=== PATIENT | male | born 1945 | race Caucasian/White ===

== ENCOUNTER 2021-10-19 00:49 | Day surgery (SDC) | payer MEDICARE, SELFPAY ==
[2021-10-11 08:52] VITALS: BMI 26.6
--- NOTE | 2021-10-11 09:08 | PC.NURSE ---
Report to the Outpatient Waiting Room, entrance under the green pavilion located off [facility], at time _0600_ on date _10/19/21_. OR Time: _0730_. - You and your visitor will be asked a series of questions to screen for COVID 19 for your protection. - Only one visitor is allowed at this time. - The patient visitor is requested to leave or wait in car when not with patient. - A mask is required within the hospital. Patients may have clear liquids (water, carbonated beverages, clear teas, apple juice) until 3 hours prior to surgery (0430 AM) with a maximum of 20 ounces. - No food from midnight until time of surgery Take the following medications with a SIP of water the morning of surgery: __EYE DROPS__ Medications to discontinue per ANESTHESIA - VITAMIN C, KRILL OIL 3 DAYS PRIOR TO SURGERY, Date to take last dose CONTACT DR. COSTA OFFICE REGARDING IBUPROFEN, NAPROXEN AND FULL STRENGTH ASPIRIN_ Please no deodorant, or body powder the day of surgery. No jewelry (including any body piercings) or valuables the day of surgery, leave them at home. Please take a shower or bath the night before, or the morning of, surgery with an antibacterial soap. Wear comfortable, loose fitting clothing. - Jewelry must be removed prior to entering the operating room. Rings and piercings that are not removed may be cut off. - The hospital will not accept responsibility for valuables. - Please leave all valuables, including medications, at home the day of surgery. If you are going home after surgery, a licensed skidder driver must drive you home. - NO public transportation without another adult. - We recommend that an adult stay with you for 24 hours following discharge. - We also recommend that you do not drive, make important decision, drink alcoholic beverages, or take any drugs that were not prescribed by your health care provider for at least 24 hours after your discharge time. Follow any additional instructions given to you from your surgeon. HIBICLENS SHOWER AM OF SURGERY If you or anyone in your household have experienced Covid symptoms in the past week, please notify your surgeon or the nurse liaison at the phone number below for possible testing. Telephone instructions given to ____PT and asked if any additional questions and then verbalized understanding. Patient advised to call surgeon office or pre surgery nurse liaison [phone] if any additional questions.
--- NOTE | 2021-10-17 13:07 | PM.SD2 ---
Same Day Admit/Disch: HPI History of Present Illness Chief complaint: Rt Ing Hernia Narrative: Shorty Carrillo is a 75 year old male Who noticed a bulge in the right groin in the middle of July. This has been persistent. He was seen in the office by his primary care physician provider and then by me and in both instances was noted to have a reducible right inguinal hernia. After discussion, he is taken to surgery now for right inguinal hernia repair. [facility] Past Medical History Medical History Chronic low back pain without sciatica Environmental allergies Erectile dysfunction Glaucoma Hemorrhagic colitis 2007 Hyperlipidemia LDL goal <100 Unspecified osteoarthritis, unspecified site Surgical History Surgical History History of cataract extraction 04/2009 History of partial colectomy 2007 Family History Family History Other Family history of malignant neoplasm of breast in first degree relative Social History Social History Smoking status: Never smoker Second hand tobacco smoke exposure: No Alcohol intake: current Drinks per week: 3 Alcohol use details: 3 beers/wine consumed weekly Substance use: never Substance use type: does not use Living arrangements: with family Gender identity (if verbalized by the patient): Male Sexual Orientation (if Verbalized by the Patient): Straight or Heterosexual Spiritual care concerns: No Same Day Admit/Disch: Med Pre-admit Medications Home Medications Medication Instructions Recorded Confirmed Type ascorbate calcium (vitamin C) 500 500 mg PO QAM 06/25/19 10/19/21 History mg tablet krill 1 cap PO QAM 06/25/19 10/19/21 History [id number]-be-[id number]-ryc-pokufrsppoyrp 300 mg-90 mg-24 mg-50 mg capsule (krill oil) latanoprost 0.005 % eye drops 1 drop ophthalmic (eye) HS 06/25/19 10/19/21 History naproxen 250 mg tablet 250 mg PO BID PRN Pain 06/25/19 10/19/21 History psyllium husk 3.4 gram/5.4 gram 1 tbsp PO QAM 06/25/19 10/19/21 History oral powder (Metamucil) cyclosporine 0.05 % eye drops in a 1 drop ophthalmic (eye) Q12H 07/10/19 10/19/21 History dropperette (Restasis) diclofenac sodium 1 % topical gel 2 g topical QID PRN Pain 01/27/21 10/19/21 History (Voltaren) aspirin 325 mg tablet 650 mg PO DAILY PRN Pain 10/11/21 10/19/21 History ibuprofen 200 mg capsule 200 mg PO Q6H PRN Pain 10/11/21 10/19/21 History oxycodone-acetaminophen 5 mg-325 1 - 2 tablet PO Q6H PRN pain #25 10/19/21 Rx mg tablet (Percocet) tabs Exam Const: General: comfortable, no acute distress, alert and awake HENMT: Head: normocephalic and atraumatic Mouth: Yes Normal oral and palatal mucosa present Eyes: Conjunctivae: conjunctivae normal Pupils: Equal, round and reactive pupils present EOM: EOMs intact bilaterally Neck: Neck: normal visual inspection, no lymphadenopathy and nontender Resp: Effort & Inspection: normal respiratory effort Auscultation: clear to auscultation bilaterally Cardio: Rate: regular rate Rhythm: regular rhythm Heart sounds: no gallops, no murmurs and no rubs GI: Inspection: non-distended GI Palp: Yes Soft to palpation, No Tenderness to palpation present (GI), No Hepatomegaly present and No Splenomegaly present : Male General Exam: Yes hernia ( Reducible right inguinal hernia) Penis: Yes normal penis Scrotum: scrotum normal Testes: Testes normal Skin: Lesions: no lesions Rashes: no rashes Neuro: General: no focal motor deficits and CN's II-XI intact bilaterally Cranial nerves: Yes Equal, round and reactive pupils present, Yes Bilaterally intact EOM present, Yes facial symmetry and Yes Midline tongue present Speech: normal speech Motor exam (neuro): 5/5 motor strength present throughout and M
--- NOTE | 2021-10-18 11:02 | WPDANESEPPF ---
Anes - Initial Pre Proc Eval Procedure: Operation Date: 10/19/21 07:30 Proposed Procedures p Right Inguinal Hernia Repair with Mesh - Stalin Veronica MD Date/Time: 10/18/21 11:02 Surgeon: Stalin Veronica MD Pre Op Diagnosis: Rt Ing Hernia Patient Data Age: 75 Gender: M Height: 1.73 m Weight: 79.54 kg Allergies Allergy/AdvReac Type Severity Reaction Status Date / Time codeine Allergy Unknown Abdominal Verified 10/19/21 06:24 Pain Penicillins Allergy Unknown Rash Verified 10/19/21 06:24 Home Medications Medication Instructions Recorded Confirmed Type ascorbate calcium (vitamin C) 500 500 mg PO QAM 06/25/19 10/19/21 History mg tablet krill 1 cap PO QAM 06/25/19 10/19/21 History [id number]-[id number]-egc-hzw-zhkyvwddcrexv 300 mg-90 mg-24 mg-50 mg capsule (krill oil) latanoprost 0.005 % eye drops 1 drop ophthalmic (eye) HS 06/25/19 10/19/21 History naproxen 250 mg tablet 250 mg PO BID PRN Pain 06/25/19 10/19/21 History psyllium husk 3.4 gram/5.4 gram 1 tbsp PO QAM 06/25/19 10/19/21 History oral powder (Metamucil) cyclosporine 0.05 % eye drops in a 1 drop ophthalmic (eye) Q12H 07/10/19 10/19/21 History dropperette (Restasis) diclofenac sodium 1 % topical gel 2 g topical QID PRN Pain 01/27/21 10/19/21 History (Voltaren) aspirin 325 mg tablet 650 mg PO DAILY PRN Pain 10/11/21 10/19/21 History ibuprofen 200 mg capsule 200 mg PO Q6H PRN Pain 10/11/21 10/19/21 History Patient hx anesthesia problems: none Family hx anesthesia problems: none Results Review: All pre-operative results and documents have been reviewed as part of the pre-operative evaluation. [facility] Past Medical History Medical History Chronic low back pain without sciatica Environmental allergies Erectile dysfunction Glaucoma Hemorrhagic colitis 2007 Hyperlipidemia LDL goal <100 Unspecified osteoarthritis, unspecified site Surgical History Surgical History History of cataract extraction 04/2009 History of partial colectomy 2007 Family History Family History Other Family history of malignant neoplasm of breast in first degree relative Social History Social History Smoking status: Never smoker Second hand tobacco smoke exposure: No Alcohol intake: current Drinks per week: 3 Alcohol use details: 3 beers/wine consumed weekly Substance use: never Substance use type: does not use Living arrangements: with family Spiritual care concerns: No Anes - Eval Final PreProcedure Day of Procedure 10/18/21 11:02 Patient weight: normal Heart: regular rate and rhythm Lungs: clear to auscultation Neurological: alert and oriented Last oral intake: >/= 8 hours ASA classification: II Emergent: no Anesthetic plan: proceed Anesthesia type and monitoring: general GIVS and standard monitoring Results Review: All pre-operative results and documents have been reviewed as part of the pre-operative evaluation. Informed Consent: The patient's anesthetic plan and its attendant risks and benefits were discussed with the patient/family/POA. Questions were solicited and answers provided to the satisfaction of the patient/family/POA.
[2021-10-19 06:35] VITALS: BMI 25.7
[2021-10-19 06:37] VITALS: BP 182/96; PULSE 64; RESP 18; TEMP 36.2; O2SAT 100
[2021-10-19] MEDS: LACTATED RINGERS 1,000 ML 30 ML IV CONT ×2 (06:38→09:32)
[2021-10-19] MEDS: KETOROLAC 15 MG/ML VIAL (*BKC) IV PUSH (06:39)
[2021-10-19] MEDS: ACETAMINOPHEN 500 MG TABLET 1000 MG PO (06:39)
--- NOTE | 2021-10-19 07:13 | WPDHPUPDATE1 ---
History and Physical Update Update Date/Time: 10/19/21 07:13 History and Physical has been reviewed, including an updated exam of the patient. There are NO changes in the patient's condition. Risks, benefits, and alternatives have been discussed and questions answered. Patient agrees to proceed with procedure.
--- NOTE | 2021-10-19 07:22 | SUR.PREOP ---
0715; DR PICKETT NOTIFIED OF HIGH BP.
[2021-10-19] MEDS: ceFAZolin 2 GM/D5W 50 ML 2 GM/50 ML BAG IVPB (07:24)
[2021-10-19] MEDS: LIDO 1%/EPINEPHRINE/PF 1:200,000 30 ML VIAL XX (07:51)
[2021-10-19 09:05] VITALS: BP 150/91; PULSE 75; RESP 12; O2SAT 98
--- NOTE | 2021-10-19 09:16 | W.PM.PROC2 ---
Procedure Note - Detailed Date of Procedure 10/19/21 Pre-op Diagnosis Rt Ing Hernia Post-op Diagnosis Other (Sliding right inguinal hernia with both direct and indirect components) Procedure Performed Repair sliding right inguinal hernia Surgeon Stalin Veronica MD Ladle Puller Betsy DOSSA Anesthesia General (G IV S), Local (1% lidocaine with epinephrine) and Other (Xaracoll) Indications Patient has had a bulge in the right groin since July. It is occasionally bothersome. He was seen in the office and found to have reducible right inguinal hernia. He is taken to surgery now for repair. Findings Patient had a pantaloon hernia which is to say he had in indirect hernia but also had a direct hernia defect so 2 hernias were repaired at this surgery. Two plugs of mesh were required. Also the indirect hernia was large and the urinary bladder formed the medial wall making this also a sliding hernia. Description of Procedure Patient was taken to surgery and induced into anesthesia. The right groin and genitalia were prepped and draped. The proposed incision was marked on the skin. Local was infiltrated into the skin and the deeper subcutaneous tissues. Incision was then made and dissection was carried down through the subcutaneous. Crossing veins were cauterized and divided. Dissection was carried down to the external oblique aponeurosis. The aponeurosis and the external ring were exposed. Additional local was infiltrated in the area of the inguinal canal deep to the aponeurosis. The aponeurosis was then opened laterally and extended medially through the external ring. Care was taken to preserve and avoid injury to the ilioinguinal nerve which was left attached to the spermatic cord throughout the surgery. We then freed the leaves of the aponeurosis from the underlying inguinal canal contents. The cord was then mobilized medially on a Emily drain. We further mobilized the cord back to the internal ring. It was obvious there was in direct hernia present. It was too small to be the hernia noted in the office and also the spermatic cord was quite thickened and suggestive of having an indirect hernia as well. Dissection in the anteromedial aspect of the cord was carried out. A large hernia sac was found. The hernia sac was dissected free from the cord structures. It was noted that the medial wall of the hernia sac actually was formed by the urinary bladder. We continued the dissection without opening the hernia sac. Once the hernia sac was freed from the spermatic cord, we dissected to a high dissection. The sac was then dunked into the retroperitoneum. An extra-large PerFix plug light was placed in the defect. The edges were sutured to the transversalis fascia with interrupted 3-0 Vicryl suture. The defect was also partially closed with 3-0 Vicryl suture. I then turned my attention to the direct hernia. I divided the transversalis fascia circumferentially around the base of the hernia sac. I then dunked to the herniated contents into the retroperitoneum. Another extra-large PerFix plug light was placed in this defect. Likewise, the edges were sutured to the transversalis fascia with interrupted 3-0 Vicryl suture. This defect was also partially closed with interrupted 3-0 Vicryl suture. I then cut the patch to the appropriate size. It was placed on the inguinal canal floor with the lateral leaves passing beyond the cord. I then placed the 1st pieced of Xaracoll over the patch. The cord and ilioinguinal nerve were then laid over the Xaracoll. The external oblique aponeurosis was closed with interrupted 3-0 Vicryl suture. Another piece of Xaracoll was then placed over the external oblique aponeurosis. Rick's fascia was closed with interrupted 3-0 Vicryl suture. The final pieces Xaracoll was placed in the subcutaneous. The skin was loosely approximated with interrupted 4-0 Vicryl subcuticular skin suture. Finally a running 4-0 Monocry
[2021-10-19 09:35] VITALS: BP 158/93; PULSE 59; RESP 16
[2021-10-19 10:05] VITALS: BP 160/89; PULSE 60; RESP 16
== END 2021-10-19 10:20 | disposition home or self-care (01) ==
PROVIDERS: PCP Family Medicine; Visit Provider Surgery
PROC: (CPT 49525; principal; 2021-10-19 07:30)
DX: K40.90 Unilateral inguinal hernia, without obstruction or gangrene, not specified as recurrent (principal); E78.5 Hyperlipidemia, unspecified; H40.9 Unspecified glaucoma; M19.90 Unspecified osteoarthritis, unspecified site; Z90.49 Acquired absence of other specified parts of digestive tract
CPT/HCPCS: 49525; A9270; C1781; J0690; J1885; J2704; J3010; J7120

== ENCOUNTER 2023-02-14 09:44 | Outpatient (CLI) | payer MEDICARE, SELFPAY ==
[2023-02-14 19:18] LABS: Kit Draw Collected
== END 2023-02-14 09:45 | disposition home or self-care (01) ==
LOC: ANHGOSHLAB 09:46
PROVIDERS: PCP Family Medicine; Visit Provider Family Medicine
DX: E53.8 Deficiency of other specified B group vitamins (principal); I10 Essential (primary) hypertension; E55.9 Vitamin D deficiency, unspecified; Z12.5 Encounter for screening for malignant neoplasm of prostate; E78.5 Hyperlipidemia, unspecified
CPT/HCPCS: 36415